=== PATIENT | male | born 1980 | race Two or more races ===

== ENCOUNTER → 2024-10-04 | Outpatient (CLI) | payer OTHER ==
[~2024-10-04] MED LIST: ISOVUE-370 76% 100ML VIAL As Ordered ONE
== END ==
LOC: M RAD 16:51
PROVIDERS: ATTEND Surgery
DX: K40.00 Bilateral inguinal hernia, with obstruction, without gangrene, not specified as recurrent (principal); R59.0 Localized enlarged lymph nodes
CPT/HCPCS: 74177; Q9967

== ENCOUNTER 2024-11-08 09:43 | Emergency (ER) | payer OTHER ==
[~2024-11-08] VITALS: Ht 170.2 cm; Wt 89.1 kg
[2024-11-08 09:48] VITALS: TEMP 97.3; O2SAT 99
[2024-11-08] MEDS ORDERED: PRED10TA2 PO (14:52)
[2024-11-08 14:59] VITALS: BP 146/78
== END 2024-11-08 14:59 | disposition home or self-care (01) ==
LOC: M ED 09:43
DX: M76.812 Anterior tibial syndrome, left leg (principal)